=== PATIENT | female | born 1985 | race Caucasian/White ===

== ENCOUNTER 2018-12-21 09:13 | Emergency (ER) | payer BC ==
[2018-12-21 09:34] VITALS: BP 147/85
[2018-12-21 10:17] LABS: A TYPE INFLUENZA AG NEGATIVE (NEGATIVE); B INFLUENZA AG NEGATIVE (NEGATIVE)
== END 2018-12-21 11:15 | disposition left against medical advice (07) ==
LOC: ER 09:13
DX: Z53.21 Procedure and treatment not carried out due to patient leaving prior to being seen by health care provider (principal)
CPT/HCPCS: 81025; 87070; 87804; 87880